=== PATIENT | male | born 1985 | race Two or more races ===

== ENCOUNTER 2024-02-01 09:53 | Emergency (ER) | payer OTHER ==
[~2024-02-01] VITALS: Ht 170.2 cm; Wt 81.6 kg
[2024-02-01] MEDS ORDERED: SUBOXONE 8 MG-1 EACH SL (10:44)
== END 2024-02-01 11:49 | disposition home or self-care (01) ==
LOC: ER 09:54
DX: J42 Unspecified chronic bronchitis (principal); Z88.6 Allergy status to analgesic agent